=== PATIENT | female | born 1990 | race African-American/Black ===

== ENCOUNTER 2016-09-12 10:01 | Emergency (ER) | payer MEDICAID ==
[~2016-09-12] VITALS: Ht 157.5 cm; Wt 61.5 kg
[~2016-09-12 10:01] MED LIST: IBUPROFEN
[2016-09-12] MEDS ORDERED: BACITRACIN ZINC OINT UDPKT TOP ONE (15:30)
[2016-09-12] MEDS ORDERED: LIDOCAINE HCL 1% 20ML VIAL (Pyxis) INJ INFIL ONE (15:30)
[2016-09-12] MEDS ORDERED: KETOROLAC 60MG/2ML VIAL IM ONE (15:30)
[2016-09-12 15:41] VITALS: BP 109/66
== END 2016-09-12 17:16 | disposition home or self-care (01) ==
LOC: ER 12:00
DX: L02.31 Cutaneous abscess of buttock (principal); R03.0 Elevated blood-pressure reading, without diagnosis of hypertension
CPT/HCPCS: 10060; 96372; 99283; J1885; J3490; X7700; Z7610

== ENCOUNTER 2016-09-14 07:38 | Emergency (ER) | payer MEDICAID ==
[~2016-09-14] VITALS: Ht 157.5 cm; Wt 59.0 kg
[2016-09-14 07:41] VITALS: BP 119/83
== END 2016-09-14 09:25 | disposition home or self-care (01) ==
LOC: ER 08:45
DX: Z48.01 Encounter for change or removal of surgical wound dressing (principal); Z79.1 Long term (current) use of non-steroidal anti-inflammatories (NSAID)
CPT/HCPCS: 99281

== ENCOUNTER 2017-05-30 09:44 | Emergency (ER) | payer MEDICAID ==
[~2017-05-30] VITALS: Ht 154.9 cm; Wt 61.0 kg
[2017-05-30 10:20] VITALS: BP 117/82
== END 2017-05-30 14:50 | disposition left against medical advice (07) ==
LOC: ER 10:21
DX: Z53.21 Procedure and treatment not carried out due to patient leaving prior to being seen by health care provider (principal)

== ENCOUNTER 2019-06-11 07:04 | Emergency (ER) | payer MEDICAID ==
[~2019-06-11] VITALS: Ht 154.9 cm; Wt 64.0 kg
[2019-06-11] MEDS ORDERED: MORPHINE SULFATE 4 MG/ML CPJ (NOT FOR IM USE) IV ONE (07:30)
[2019-06-11] MEDS ORDERED: KETOROLAC 30MG/ML VIAL IV ONE (07:30)
[2019-06-11] MEDS ORDERED: ONDANSETRON HCL 4MG/2ML INJ IV ONE (07:30)
[2019-06-11 07:58] LABS: BASOPHILS % 0.4 % (0.0-2.0); EOSINOPHILS % 0.3 % (0.0-5.0); HEMATOCRIT. 39.4 % (36.0-48.0); HEMOGLOBIN. 13.4 g/dL (12.0-16.0); LYMPHOCYTES % 11.7 % (20.0-50.0); MEAN CORPUSCULAR HEMOGLOBIN 30.5 pg (28.0-32.0); MEAN CORPUSCULAR VOLUME 89.5 fL (81.0-99.0); MONOCYTES % 3.2 % (2.0-8.0); NEUTROPHILS % 84.4 % (40.0-76.0); PLATELET 230 x1000/uL (130-400); RED CELL DISTRIBUTION WIDTH 13.9 % (11.6-14.6)
[2019-06-11 08:08] LABS: CHLORIDE 109 mEq/L (98-107)
[2019-06-11 08:19] LABS: B-HCG QUANTITATIVE < 1 mIU/mL (<3)
[2019-06-11 10:14] LABS: CLARITY URINE CLEAR (CLEAR); COLOR URINE YELLOW (YELLOW); KETONES URINE NEGATIVE (NEGATIVE); LEUKOCYTE ESTERASE URINE NEGATIVE (NEGATIVE); NITRITE URINE NEGATIVE (NEGATIVE); OCCULT BLOOD URINE 3+ (NEGATIVE); PH URINE 6.5 (4.5-8.0); PROTEIN URINE NEGATIVE (NEGATIVE); SPECIFIC GRAVITY URINE 1.013 (1.005-1.030); UROBILINOGEN URINE 0.2 E.U./dL (0.2-1.0)
[2019-06-11 10:30] VITALS: BP 114/90
== END 2019-06-11 10:45 | disposition home or self-care (01) ==
LOC: ER 07:04
DX: R10.2 Pelvic and perineal pain (principal); R11.2 Nausea with vomiting, unspecified; R10.31 Right lower quadrant pain
CPT/HCPCS: 36415; 76830; 76856; 80053; 81003; 81025; 84702; 85025; 96374; 96375; 99284; J1885; J2270; J2405